=== PATIENT | female | born 1990 | race Caucasian/White ===

== ENCOUNTER 2017-11-18 20:15 | Emergency (ER) | payer OTHER ==
[~2017-11-18] VITALS: Ht 152.4 cm; Wt 70.3 kg
[2017-11-18] MEDS ORDERED: PENICILLIN V P500 MG (20:23)
[2017-11-18] MEDS ORDERED: IBUPROFEN 800800 M1 PO (20:23)
[2017-11-18] MEDS ORDERED: TRAMADOL 50 MG50 MG PO (21:21)
[2017-11-18] MEDS ORDERED: MAGIC MOUTHWASH SWISH&SPIT (21:21)
== END 2017-11-18 21:47 | disposition home or self-care (01) ==
LOC: ER 20:15
DX: K04.7 Periapical abscess without sinus (principal)